=== PATIENT | female | born 1970 | race Caucasian/White ===

== ENCOUNTER → 2020-08-10 | Day surgery (SDC) | payer OTHER ==
[~2020-08-10] MED LIST: BENADRYL25 M1 PO; BIOTIN PO
[2020-08-10 07:33] LABS: HCT 41.5 % (37.0-47.0); HGB 13.7 g/dl (12.5-16.0); MCH 30.1 pg (25.0-31.0); MCV 91.2 fL (78.0-100.0); RBC 4.55 M/uL (4.20-5.40); RDW 13.2 % (11.5-14.0); WBC 6.9 K/uL (4.0-10.5)
[2020-08-10 07:54] LABS: ALBUMIN 3.6 g/dL (3.4-5.0); BILIRUBIN - TOTAL 0.4 mg/dL (0.2-1.0); BUN/CREAT RATIO (CALC) 22.1 RATIO; CREATININE 0.68 mg/dL (0.51-0.95); GLOBULIN (CALCULATION) 3.8 g/dL; POTASSIUM 4.1 mmol/L (3.5-5.1); TOTAL PROTEIN 7.4 g/dL (6.4-8.2)
== END | disposition home or self-care (01) ==
LOC: FAS 08-02 08:00
PROVIDERS: Surgery
DX: K21.9 Gastro-esophageal reflux disease without esophagitis (principal); K29.70 Gastritis, unspecified, without bleeding; Z80.0 Family history of malignant neoplasm of digestive organs
CPT/HCPCS: 36415; 80053; 84703; J2250; J2704; J7120